=== PATIENT | female | born 1955 | race Caucasian/White ===

== ENCOUNTER 2017-06-12 05:43 | Inpatient (IN) | payer OTHER ==
[~2017-06-12] VITALS: Ht 167.6 cm; Wt 62.6 kg
[2017-06-12] VITALS (12 sets, daily range): BP systolic 116–152; BP diastolic 64–85
[~2017-06-12 05:43] MED LIST: FISH OIL 1,0001 EAC1 PO; FOLIC ACID1 MG PO; METHOTREXATE2.5 MG PO; RA CALCIUM ORAL; SAVELLA100 MG PO; VICODIN 5-5001 EACH PO
[2017-06-12] MEDS ORDERED: Thrombin 5000 units TOPIC ONE (06:24)
[2017-06-12] MEDS ORDERED: Bacitracin 50000 Units Vial ONE (06:25)
[2017-06-12] MEDS ORDERED: Bupivacaine w/Epi 0.5% 30ml Vial INJ ONE (06:25)
[2017-06-12] MEDS ORDERED: Gelfoam Absorbable 1gm powder pkt TOPIC ONE (06:25)
[2017-06-12] MEDS ORDERED: Thrombin 5000 units spray kit TOPIC ONE (06:25)
[2017-06-12] MEDS ORDERED: LEVOTHYROXINE50 MCG ORAL (06:30)
[2017-06-12] MEDS ORDERED: FENTANYL1 EAC1 TOPIC (06:30)
[2017-06-12] MEDS ORDERED: Succinylcholine 20mg/ml 10ml vial ONE (07:00)
[2017-06-12] MEDS ORDERED: fentaNYL 250mcg/5ml ONE (07:00)
[2017-06-12] MEDS ORDERED: Midazolam 2mg/2ml Inj ONE (07:00)
[2017-06-12] MEDS ORDERED: NS Irrig 1000ml ONE (07:00)
[2017-06-12] MEDS ORDERED: Ketorolac 30mg Inj ONE (07:00)
[2017-06-12] MEDS ORDERED: Zemuron 50mg/5ml Inj IV ONE (07:00)
[2017-06-12] MEDS ORDERED: Glycopyrrolate 0.2mg/ml 1ml Vial ONE (07:00)
[2017-06-12] MEDS ORDERED: LR 1000ml ONE (07:00)
[2017-06-12] MEDS ORDERED: Sterile Water For Irrig 2000ml IRRIG ONE (07:00)
[2017-06-12] MEDS ORDERED: Propofol 200mg/20ml IV ONE (07:00)
[2017-06-12] MEDS ORDERED: Neostigmine 1mg/ml 10ml Inj ONE (07:00)
--- NOTE | 2017-06-12 07:03 | Pre-Procedure Note/Attestation ---
Pre-Procedure Note/Attestation Complete Prior to Procedure Procedure Narrative: Painful retained posterior L4-5 Lumbar hardware. For removal and fusion exploration. Attestation I attest that I discussed the nature of the procedure; its benefits; risks and complications; and alternatives (and the risks and benefits of such alternatives ), prior to the procedure, with the patient (or the patient's legal branch sales and service representative). I attest that, if there was a reasonable possibility of needing a blood transfusion, the patient (or the patient's legal branch sales and service representative) was given the [facility] standardized written summary, pursuant to the Braeden Angelica Blood Safety Act ([place] Health and Safety Code # 1645, as amended). I attest that I re-evaluated the patient just prior to the surgery and that there has been no change in the patient's H&P, except as documented below: LYO FRANCISCO Jun 12, 2017 07:03
--- NOTE | 2017-06-12 08:15 | Anethesia Preoperative Eval ---
Anesthesia Pre-op PMH/ROS General Date of Evaluation: Jun 12, 2017 Time of Evaluation: 06:50 Anesthesiologist: Audra ASA Score: ASA 3 Mallampati Score Class I : Soft palate, uvula, fauces, pillars visible Class II: Soft palate, uvula, fauces visible Class III: Soft palate, base of uvula visible Class IV: Only hard plate visible Mallampati Classification: Class II Surgeon: Zoltan Diagnosis: Painful lumbar hardwear Surgical Procedure: Removal of lumbar hardwear Anesthesia History: PONV Family History: no anesthesia problems Allergies: Coded Allergies: MORPHINE (Verified Adverse Reaction, 09/30/13) Uncoded Allergies: MORPHINE SULFATE (Adverse Reaction, Severe, SEVERE NAUSEA/VOMITING, 09/30/13 ) Past Medical History Cardiovascular: Denies: HTN, CAD, UT, valve dz, arrhythmia, other Pulmonary: Denies: asthma, COPD, YVES, other Gastrointestinal/Genitourinary: Reports: GERD, Denies: CRI, ESRD, other Neurologic/Psychiatric: Reports: depression/anxiety, other - chronic pain, Denies: dementia, CVA, TIA Endocrine: Reports: hypothyroidism, other - hyperparathyroiod s/p, Denies: DM, steroids HEENT: Denies: cataract (L), cataract (R), glaucoma, KALSKAG (L), KALSKAG (R), other Hematology/Immune: Denies: anemia, DVT, bleeding disorder, other Musculoskeletal/Integumentary: Reports: DJD, Denies: OA, RA, DDD, edema, other PMH Narrative: Thyroidectomy, ACDF, laminotomy, posterior and anterior lumbar fusion knee arthroplasty PSxH Narrative: as above Anesthesia Pre-op Phys. Exam Physician Exam Last Vital Signs Date Time Temp Pulse Resp B/P (MAP) Pulse Ox O2 Delivery O2 Flow Rate FiO2 06/12/17 06:31 99.0 83 18 152/85 99 Room Air Constitutional: NAD Neurologic: CN 2-12 intact Cardiovascular: RRR, no M/R/G Respiratory: CTA Gastrointestinal: S/NT/ND Airway Exam Mallampati Score: Class II MO: limited Neck: stiff ROM: limited Teeth: intact Dentures: no upper, no lower Anesthesia Pre-op A/P Labs see chart Studies Pre-op Studies: EKG - NSR Risk Assessment & Plan Assessment: ASA 3 Plan: GA with ETT prone position Status Change Before Surgery: No Pre-Antibiotics Drug: Ancef 1gr. Given Within 1 Hr of Incision: Yes Time Given: 07:56 DO GRAY M.D. Jun 12, 2017 08:15
[2017-06-12] MEDS ORDERED: LR 1000ml 1,000 ML IVLG SCH (08:16)
[2017-06-12] MEDS ORDERED: Meperidine 25mg/0.5ml Inj (FOR RIGORS ONLY) IV PRN (08:30)
[2017-06-12] MEDS ORDERED: DiphenhydrAMINE 50mg/ml Inj IVP PRN ×2 (08:30→09:30)
[2017-06-12] MEDS ORDERED: Midazolam 2mg/2ml Inj IVP PRN (08:30)
[2017-06-12] MEDS ORDERED: Ketorolac 30mg Inj IV PRN (08:30)
[2017-06-12] MEDS ORDERED: Acetaminophen 650 MG SUPP RECTAL PRN (09:00)
--- NOTE | 2017-06-12 09:07 | Operative Note - PDOC ---
Operative Note Operative Note Chief Complaint: Low Back Pain Pre-op Diagnosis: Painful retained lumbar hardware, L4-5 Procedure: Removal Hardware, Fusion exploration L4-5 Post-op Diagnosis: same as pre-op Operative Findings: consistent w/pre-op dx studies Surgeon: Zoltan Electrical Controls Designer: CHARITY Ashley Anesthesiologist: Kale Anesthesia: general Specimen: none Complications: none Condition: stable Estimated Blood Loss: minimal Drains: none Implant(s) used?: LOY Grace Jun 12, 2017 09:07
--- NOTE | 2017-06-12 09:14 | Immediate Post-Op Evaluation ---
Immediate Post-Op Evalulation Immediate Post-Op Evalulation Procedure: Removal of painfull lumbar hardwear Date of Evaluation: Jun 12, 2017 Time of Evaluation: 09:13 IV Fluids: 1200 Blood Products: none Estimated Blood Loss: 50 Urinary Output: none Blood Pressure Systolic: 126 Blood Pressure Diastolic: 78 Pulse Rate: 87 Respiratory Rate: 20 O2 Sat by Pulse Oximetry: 99 Temperature (Fahrenheit): 97.8 Pain Score (1-10): 2 Nausea: No Vomiting: No Complications none Patient Status: reacts, patent, extubated, none Hydration Status: adequate DO GRAY M.D. Jun 12, 2017 09:14
[2017-06-12] MEDS: PCA HYDROmorphone 1mg/ml 30 ML IV PRN (09:26)
[2017-06-12] MEDS ORDERED: PCA Education Pamphlet MISC SCH (09:30)
[2017-06-12] MEDS ORDERED: Rate Change PCA 1 Each MISC PRN (09:30)
[2017-06-12] MEDS: Hydromorphone 0.5mg/0.5ml inj IVP PRN ×2 (09:30→10:34)
[2017-06-12] MEDS ORDERED: LORazepam 1mg tab ORAL PRN (09:30)
[2017-06-12] MEDS ORDERED: Naloxone 0.4mg/ml Inj IVP PRN (09:30)
--- NOTE | 2017-06-12 11:09 | Diagnostic Imaging Report ---
Indication: PAIN, intraoperative Technique: Digital intraoperative images Comparison: 09/30/2013 Findings: Completion images document removal of previously demonstrated pedicle screws and posterior fusion hardware. The disc spacers remain in place. Impression: Intraoperative imaging, as described
[2017-06-12] MEDS: ceFAZolin 1gm/50ml Premix 50 ML IV SCH ×2 (14:27→21:18)
[2017-06-12] MEDS ORDERED: ceFAZolin sod 1 GM in D5W 55 ML IV SCH (15:00)
--- NOTE | 2017-06-12 16:45 | Operative Note - Dictated ---
DATE OF OPERATION: 06/12/2017 FACILITY: [facility]. ANESTHESIOLOGIST: Chaparro Henley M.D. Anesthesia: General endotracheal with arterial blood pressure monitoring. SURGEON: Khadar Charlton M.D. DIRECTOR OF ASSISTED LIVING: UMANG Herrera. Preoperative Diagnosis: Status post prior posterior spine decompression and fusion with placement of interbody graft at L4-L5 with pedicle screw fixation bilaterally at L4 and L5 with a multi-length cross-link. Subsequently, the patient had an anterior interbody fusion at L4-L5 and at L3-L4 with removal of the PEEK implant at L4-L5. Operative Procedure: Posterior approach to the hardware at L4-L5 with removal of the cross-link and removal of the pedicle screws at L4 and L5 bilaterally as well as the connecting lisa. The fusion mass was explored posteriorly between the pedicle screws at L4 and L5. It was exposed and the mass was uncovered. It was morcellated and autogenous bone that was harvested from nearby posterior crest of the ilium was placed into the trough under the paraspinous muscles connecting the transverse process of L4-L5 forming a lateral fusion. There was not continuity discovered in the bony connection across the lateral mass, lateral gutter between the spinous process at L4 and L5. The canal was not opened. The wound was copiously irrigated. Muscles were closed in interrupted layers as well as the subcutaneous and skin. Each of the screw sites was cleared of all internal debris with curettes. Blood loss was estimated less than 100 mL. The augmentation of the lateral fusion was done bilaterally. The patient tolerated procedure well and was placed in a bulky compression dressing, returned to recovery room in good condition. Khadar Charlton M.D. DR: CARLOS JOB#: [id number] CC:
[2017-06-12] MEDS: Docusate 100mg cap ORAL SCH (17:20)
[2017-06-12] MEDS: Pericolace tab ORAL SCH (17:20)
[2017-06-12] MEDS: PCA shift volume MISC SCH (19:19)
[2017-06-13] VITALS: BP 122/68
[2017-06-13 04:00] VITALS: BP 116/65
[2017-06-13] MEDS: PCA HYDROmorphone 1mg/ml 30 ML IV PRN (06:25)
[2017-06-13] MEDS: PCA shift volume MISC SCH ×2 (07:27→19:12)
[2017-06-13] MEDS: ceFAZolin 1gm/50ml Premix 50 ML IV SCH (07:29)
[2017-06-13 08:00] VITALS: BP 142/72
--- NOTE | 2017-06-13 08:36 | General Progress Note ---
Assessment/Plan Assessment/Plan Painful retained lumbar hardware, L4-5 Removal Hardware, Fusion exploration L4-5 fibromyalgia PLAN 1. incentive spirometry 2. SCD 3. PT evaluation and therapy 4. Hydration 5. Pain management 6. discharge once stable with outpatient follow up Subjective Date patient seen: Jun 12, 2017 Allergies: Coded Allergies: MORPHINE (Verified Adverse Reaction, 09/30/13) Uncoded Allergies: MORPHINE SULFATE (Adverse Reaction, Severe, SEVERE NAUSEA/VOMITING, 09/30/13 ) Subjective post op care noted Objective Last 24 Hour Vital Signs Date Time Temp Pulse Resp B/P (MAP) Pulse Ox O2 Delivery O2 Flow Rate FiO2 06/12/17 16:00 18 06/12/17 16:00 97.7 55 18 116/64 99 Nasal Cannula 06/12/17 12:03 18 06/12/17 12:00 97.8 62 18 143/69 100 Nasal Cannula 3.0 06/12/17 11:10 18 06/12/17 11:00 20 06/12/17 10:34 97.6 06/12/17 10:33 97.6 06/12/17 10:20 20 06/12/17 10:15 97.6 55 20 116/66 100 Nasal Cannula 3.0 06/12/17 10:00 20 06/12/17 10:00 59 20 117/69 100 Nasal Cannula 3.0 06/12/17 09:45 63 20 122/72 100 Nasal Cannula 3.0 06/12/17 09:41 20 06/12/17 09:30 74 20 130/78 100 Nasal Cannula 3.0 06/12/17 09:26 90 20 128/75 100 Nasal Cannula 3.0 06/12/17 09:26 20 06/12/17 09:16 85 20 129/75 100 Simple Mask 8.0 06/12/17 09:14 87 20 99 06/12/17 09:11 90 20 126/78 100 Simple Mask 8.0 06/12/17 09:06 97.9 100 20 129/83 100 Simple Mask 8.0 Height (Feet): 5 Height (Inches): 6.00 Weight (Pounds): 138 Objective WDWN NAD clear breath sounds bilaterally without rhonchi or wheeze [id number] without MRG NABS nontender no HSM no CCE nonfocal NAI BUTLER Jun 13, 2017 08:36
[2017-06-13] MEDS: Pericolace tab ORAL SCH ×2 (08:38→19:04)
[2017-06-13] MEDS: Docusate 100mg cap ORAL SCH ×2 (08:38→19:04)
--- NOTE | 2017-06-13 08:40 | General Progress Note ---
Assessment/Plan Assessment/Plan Painful retained lumbar hardware, L4-5 Removal Hardware, Fusion exploration L4-5 fibromyalgia PLAN 1. incentive spirometry 2. SCD 3. PT evaluation and therapy 4. Hydration 5. Pain management 6. discharge once stable with outpatient follow up Subjective Allergies: Coded Allergies: MORPHINE (Verified Adverse Reaction, 09/30/13) Uncoded Allergies: MORPHINE SULFATE (Adverse Reaction, Severe, SEVERE NAUSEA/VOMITING, 09/30/13 ) Subjective post op care noted Objective Last 24 Hour Vital Signs Date Time Temp Pulse Resp B/P (MAP) Pulse Ox O2 Delivery O2 Flow Rate FiO2 06/13/17 08:00 18 06/13/17 08:00 99.4 98 18 142/72 96 Room Air 06/13/17 04:00 98.1 62 18 116/65 98 Room Air 06/13/17 04:00 19 06/13/17 00:00 97.7 60 19 122/68 98 Room Air 06/13/17 00:00 19 06/12/17 20:00 18 06/12/17 20:00 97.4 64 18 124/71 99 Room Air 06/12/17 16:00 18 06/12/17 16:00 97.7 55 18 116/64 99 Nasal Cannula 06/12/17 12:03 18 06/12/17 12:00 97.8 62 18 143/69 100 Nasal Cannula 3.0 06/12/17 11:10 18 06/12/17 11:00 20 06/12/17 10:34 97.6 06/12/17 10:33 97.6 06/12/17 10:20 20 06/12/17 10:15 97.6 55 20 116/66 100 Nasal Cannula 3.0 06/12/17 10:00 20 06/12/17 10:00 59 20 117/69 100 Nasal Cannula 3.0 06/12/17 09:45 63 20 122/72 100 Nasal Cannula 3.0 06/12/17 09:41 20 06/12/17 09:30 74 20 130/78 100 Nasal Cannula 3.0 06/12/17 09:26 90 20 128/75 100 Nasal Cannula 3.0 06/12/17 09:26 20 06/12/17 09:16 85 20 129/75 100 Simple Mask 8.0 06/12/17 09:14 87 20 99 06/12/17 09:11 90 20 126/78 100 Simple Mask 8.0 06/12/17 09:06 97.9 100 20 129/83 100 Simple Mask 8.0 Height (Feet): 5 Height (Inches): 6.00 Weight (Pounds): 138 Objective WDWN NAD clear breath sounds bilaterally without rhonchi or wheeze [id number] without MRG NABS nontender no HSM no CCE nonfocal NAI BUTLER Jun 13, 2017 08:40
[2017-06-13 11:21] VITALS: BP 112/79
--- NOTE | 2017-06-13 12:18 | 48 Hour Post Anesthesia Eval ---
Post Anesthesia Evaluation Procedure: Removal of painfull lumbar hardwear Date of Evaluation: Jun 13, 2017 Blood Pressure Systolic: 112 0: 79 Pulse Rate: 100 Respiratory Rate: 20 Temperature (Fahrenheit): 99.5 O2 Sat by Pulse Oximetry: 98 Airway: patent Nausea: No Vomiting: No Pain Intensity: 2 Hydration Status: adequate Cardiopulmonary Status: Stable Mental Status/LOC: patient returned to baseline Follow-up Care/Observations: As per surgery Post-Anesthesia Complications: No anesthetic complication Follow-up care needed: N/A VERO PAREKH M.D. Jun 13, 2017 12:18
[2017-06-13 16:00] VITALS: BP 129/79
[2017-06-13] MEDS: SAVELLA 50 MG ORAL SCH ×2 (16:15→21:00)
[2017-06-13 20:00] VITALS: BP 125/85
[2017-06-14 04:00] VITALS: BP 129/69
[2017-06-14] MEDS: PCA HYDROmorphone 1mg/ml 30 ML IV PRN (05:20)
[2017-06-14] MEDS: PCA shift volume MISC SCH (07:00)
[2017-06-14 08:00] VITALS: BP 133/78
[2017-06-14] MEDS ORDERED: fentaNYL Destruction MISC SCH (08:00)
[2017-06-14] MEDS: SAVELLA 50 MG ORAL SCH ×2 (08:13→17:57)
[2017-06-14] MEDS: Docusate 100mg cap ORAL SCH ×2 (08:13→17:57)
[2017-06-14] MEDS: Pericolace tab ORAL SCH ×2 (08:13→17:57)
[2017-06-14] MEDS ORDERED: Norco 7.5mg/325mg tab ORAL PRN ×6 (09:30→20:30)
[2017-06-14] MEDS ORDERED: Naloxone 0.4mg/ml Inj IVP PRN ×3 (09:30→20:30)
[2017-06-14 12:00] VITALS: BP 132/74
--- NOTE | 2017-06-14 14:05 | General Progress Note ---
Assessment/Plan Assessment/Plan Painful retained lumbar hardware, L4-5 Removal Hardware, Fusion exploration L4-5 fibromyalgia PLAN 1. incentive spirometry 2. SCD 3. PT evaluation and therapy 4. Hydration 5. Pain management 6. discharge in am if stable impression, plan, and exam edited and reviewed in detail care discussed with RN Subjective Allergies: Coded Allergies: MORPHINE (Verified Adverse Reaction, 09/30/13) Uncoded Allergies: MORPHINE SULFATE (Adverse Reaction, Severe, SEVERE NAUSEA/VOMITING, 09/30/13 ) Subjective post op care noted now improved and able to take po Objective Last 24 Hour Vital Signs Date Time Temp Pulse Resp B/P (MAP) Pulse Ox O2 Delivery O2 Flow Rate FiO2 06/14/17 08:45 98.3 06/14/17 08:00 18 06/14/17 08:00 97.7 77 18 133/78 98 Room Air 06/14/17 05:20 18 06/14/17 04:00 98.3 89 18 129/69 97 Room Air 06/14/17 04:00 18 06/14/17 00:00 18 06/13/17 20:00 98.4 95 18 125/85 97 Room Air 06/13/17 20:00 18 06/13/17 16:00 20 06/13/17 16:00 98.7 100 20 129/79 97 Room Air Height (Feet): 5 Height (Inches): 6.00 Weight (Pounds): 138 Objective WDWN NAD clear breath sounds bilaterally without rhonchi or wheeze [id number] without MRG NABS nontender no HSM no CCE nonfocal NAI BUTLER Jun 14, 2017 14:04
[2017-06-14 16:00] VITALS: BP 136/78
[2017-06-14] MEDS ORDERED: Tubing IV Secondary IV ONE (18:38)
[2017-06-14] MEDS ORDERED: PCA Education Pamphlet MISC ONE ×2 (19:45→21:00)
[2017-06-14] MEDS ORDERED: Rate Change PCA 1 Each MISC PRN ×2 (19:45→20:30)
[2017-06-14] MEDS ORDERED: PCA HYDROmorphone 1mg/ml 30 ML IV PRN ×2 (19:45→20:30)
[2017-06-14 20:00] VITALS: BP 120/69
[2017-06-15] VITALS: BP 124/60
[2017-06-15 04:00] VITALS: BP 114/66
[2017-06-15] MEDS ORDERED: PCA shift volume MISC SCH ×2 (07:00)
[2017-06-15 08:31] VITALS: BP 125/73
[2017-06-15] MEDS: SAVELLA 50 MG ORAL SCH (09:28)
[2017-06-15] MEDS: Pericolace tab ORAL SCH (09:28)
[2017-06-15] MEDS: Docusate 100mg cap ORAL SCH (09:28)
[2017-06-15 11:31] VITALS: BP 127/72
--- NOTE | 2017-06-15 17:02 | General Progress Note ---
Assessment/Plan Assessment/Plan Painful retained lumbar hardware, L4-5 Removal Hardware, Fusion exploration L4-5 fibromyalgia PLAN dc home rx given doing well able to ambulate and taking adequate po impression, plan, and exam edited and reviewed in detail care discussed with RN Subjective Allergies: Coded Allergies: MORPHINE (Verified Adverse Reaction, 09/30/13) Uncoded Allergies: MORPHINE SULFATE (Adverse Reaction, Severe, SEVERE NAUSEA/VOMITING, 09/30/13 ) Subjective SEEN EARLIER DOING WELL DC PLANNING TODAY Objective Last 24 Hour Vital Signs Date Time Temp Pulse Resp B/P (MAP) Pulse Ox O2 Delivery O2 Flow Rate FiO2 06/15/17 11:31 98.4 100 20 127/72 98 Room Air 06/15/17 11:30 16 06/15/17 08:31 98.3 100 20 125/73 96 Room Air 06/15/17 08:00 16 06/15/17 04:00 97.9 77 18 114/66 95 Room Air 06/15/17 04:00 16 06/15/17 00:00 16 06/15/17 00:00 98.1 93 18 124/60 96 Room Air 06/14/17 20:00 99.1 98 18 120/69 98 Room Air 06/14/17 20:00 17 Intake and Output 06/15/17 06/16/17 19:00 07:00 Intake Total 220 ml Balance 220 ml Intake Oral 220 ml # Voids 1 Height (Feet): 5 Height (Inches): 6.00 Weight (Pounds): 138 Objective WDWN NAD clear breath sounds bilaterally without rhonchi or wheeze [id number] without MRG NABS nontender no HSM no CCE nonfocal ANI BUTLER Jun 15, 2017 17:02
--- NOTE | 2017-06-16 10:11 | Discharge Summary ---
Discharge Summary Hospital Course Date of Admission Jun 12, 2017 at 05:43 Date of Discharge Jun 15, 2017 at 12:00 Admitting Diagnosis HPI Monico Christopher is a 62 year old female who was admitted on Jun 12, 2017 at 05:43 for Painfull Hardware Hospital Course [id number] Discharge Discharge Disposition Patient was discharged to Home (01) Discharge Diagnoses: Aliya Hyatt NP Jun 16, 2017 10:11
--- NOTE | 2017-06-17 06:30 | Discharge Summary 2 SIG ---
DATE OF ADMISSION: 06/12/2017 DATE OF DISCHARGE: 06/15/2017 SURGEON: Khadar Charlton M.D. CLASSIFIED ADVERTISING SUPERVISOR: Kris More M.D. Brief Hospital Course: The patient is a 62-year-old female, who has a painful retained lumbar hardware on L4-L5, underwent hardware removal on 06/12/[address] Charlton. Postoperatively, the patient was continued on IV hydration and was given pain management. She was encouraged use of incentive spirometry and was given SCDs for DVT prophylaxis and encouraged ambulation with physical therapy. She had good pain control and was given spinal precautions. The patient was eventually discharged home. Final Diagnosis: Low back pain with painful retained lumbar hardware on L4-L5 status post hardware removal with fusion and exploration on L4-L5. (Refer to operative report) Khadar Charlton M.D. I have been assigned to dictate discharge summary on this account and I was not involved in the patient's management. Aliya Hyatt N.P. DR: QUANG JOB#: [id number] CC: ARVIND
== END 2017-06-15 12:00 | disposition home or self-care (01) | DRG 460 ==
LOC: SDSOVERFLO 05:43 → 3E 10:54
PROC: 0SG1071 Fusion of 2 or more Lumbar Vertebral Joints with Autologous Tissue Substitute, Posterior Approach, Posterior Column, Open Approach (ICD-10-PCS; principal; 2017-06-12 07:00)
PROC: 0QB20ZZ Excision of Right Pelvic Bone, Open Approach (ICD-10-PCS; principal; 2017-06-12 07:00)
PROC: 0QP004Z Removal of Internal Fixation Device from Lumbar Vertebra, Open Approach (ICD-10-PCS; principal; 2017-06-12 07:00)
DX: T84.84XA Pain due to internal orthopedic prosthetic devices, implants and grafts, initial encounter (principal); L40.50 Arthropathic psoriasis, unspecified; Z98.1 Arthrodesis status; M54.5 Low back pain; M79.7 Fibromyalgia; Z88.6 Allergy status to analgesic agent; Z96.651 Presence of right artificial knee joint; E21.0 Primary hyperparathyroidism
CPT/HCPCS: 36415; 72020; 76001; 86850; 86900; 86901; 87081; 94003; 94150; C9399; J2250; J2405; J2710